=== PATIENT | male | born 1975 ===

== ENCOUNTER 2017-03-20 19:29 | Emergency (ER) | payer BC ==
[~2017-03-20] VITALS: Ht 170.2 cm; Wt 95.3 kg
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
[2017-03-20] MEDS: OXYCODONE HCL 10 MG TAB.SR.12H PO STA (21:04)
[2017-03-20] MEDS: OXYCODONE HCL 5 MG TABLET PO ONE (21:07)
--- NOTE | 2017-03-20 21:13 | NUR ---
Patient discharged to home in stable conditon WITH TAKING PATIENT HOME. Written and verbal after care instructions given. Patient verbalizes understanding of instructions. WALKED OUT OF ER WITH STEADY GAIT NO DISTRESS NOTED
[2017-03-20 21:14] VITALS: BP 133/89
[2017-03-20] MEDS ORDERED: OXYCODONE HCL 5 MG TABLET ONE (21:17)
== END 2017-03-20 21:14 | disposition home or self-care (01) ==
LOC: ER 19:29
DX: S60.222A Contusion of left hand, initial encounter (principal); G89.29 Other chronic pain; M25.512 Pain in left shoulder; M54.5 Low back pain; F17.200 Nicotine dependence, unspecified, uncomplicated; X50.9XXA Other and unspecified overexertion or strenuous movements or postures, initial encounter; Y93.89 Activity, other specified; Y92.9 Unspecified place or not applicable; Y99.9 Unspecified external cause status
CPT/HCPCS: 72072; 72100; 73030; 73130; A4663

== ENCOUNTER 2017-04-12 12:48 | Emergency (ER) | payer BC ==
[~2017-04-12] VITALS: Ht 170.2 cm; Wt 102.1 kg
[2017-04-12] MEDS ORDERED: KETOROLAC TROMETHAMINE 30 MG INJ IM ONE (13:30)
--- NOTE | 2017-04-12 13:43 | NUR ---
Patient discharged to home in stable conditon. Written and verbal after care instructions given. Patient verbalizes understanding of instructions.pt walks in steady gait, accompanied by . pt refuses toradol not sure if it is covered by insurance.
[2017-04-12] MEDS ORDERED: KETOROLAC TROMETHAMINE 30 MG INJ ONE (13:47)
== END 2017-04-12 13:45 | disposition home or self-care (01) ==
LOC: ER 12:48
DX: G89.29 Other chronic pain (principal); M54.5 Low back pain; Z76.0 Encounter for issue of repeat prescription
CPT/HCPCS: A4663; J1885